=== PATIENT | female | born 1995 | race Caucasian/White ===

== ENCOUNTER 2016-10-20 15:50 | Emergency (ER) | payer OTHER ==
[2016-10-20 16:31] VITALS: BP 105/72; PULSE 86
--- NOTE | 2016-10-20 16:51 | PD ---
HPI Chief Complaint labor check Date Seen: Oct 20, 2016 Time Seen: 16:40 Travel History International Travel<30 Days: No Contact w/Intl Traveler<30Days: No Known Affected Area: No History of Present Illness HPI 21-year-old at 40 and 2/7 weeks today based on second trimester ultrasound performed at [facility] in on July 01, 2016 presents to the ED for labor check. She has unknown LMP. Not received any care. Contraction, gush of fluid, vaginal bleeding, but does feel baby move actively. She confirms a history of anemia and UTI remotely, but denies any surgeries, allergies. She only takes vitamins but over the past 2 months. She smokes 1 pack per day of cigarettes. She denies alcohol and illicit drug use. Family history significant for cervical cancer in her mother. She denies VELAZCO/N/V/D/fever/sick contacts/SOB/calf pain/dizziness/seeing spots. Para: 0 : 1 History Past Medical History Medical History: Denies Significant Hx Obstetric History Obstetric History , possible unconfirmed spontaneous at some point in the past Past Surgical History Surgical History: No Previous Surgery Family History Family History: Negative Social History Alcohol Use: No Tobacco Use: Yes (1 pack per day) Substance Abuse: No Allergies-Medications (Allergen,Severity, Reaction): Coded Allergies: No Known Allergies (Unverified , 10/20/16) Narrative Medication PNV Review of Systems Except as stated in HPI: all other systems reviewed are Neg Physical Exam Narrative GENERAL: Well-nourished, well-developed female in no acute distress. SKIN: Warm and dry. No rashes. HEAD: Normocephalic and atraumatic. EYES: No scleral icterus. No injection or drainage. ENT: No nasal drainage noted. Mucous membranes pink. Airway patent. NECK: Supple, trachea midline. No JVD. CARDIOVASCULAR: Regular rate and rhythm without murmurs, gallops, or rubs. RESPIRATORY: Breath sounds equal bilaterally. No accessory muscle use.. ABDOMEN/GI: Abdomen soft, non-tender, bowel sounds present, no rebound, no guarding GENITOURINARY: External Genitalia: intact and normal in appearance Cervix: closed, thick, high Membranes: Intact Uterine Contractions: Possibly 1 sporadic FHT's: Category: 1 Baseline: 120 Reactive: Yes to 150 Variability: Moderate Decels: Absent EXTREMITIES: No cyanosis or edema. BACK: Nontender without obvious deformity. No CVA tenderness. NEUROLOGICAL: Awake and alert. Motor and sensory grossly within normal limits. Five out of 5 muscle strength in all muscle groups. Normal speech. Data Data Vital Signs Reviewed: Yes (BP 105/72, 86 pulse) Orders Vital Signs (Adult) .ON ADMISSION (10/20/16 16:05) ^ Labor Status (10/20/16 16:05) ^ Non Stress Test (10/20/16 16:05) ^ Hydration (10/20/16 16:05) MDM Medical Record Reviewed: Yes Narrative Course / MDM 21-year-old at possibly 40 weeks by second trimester ultrasound performed at a crisis center presents for labor check. No care. Intrauterine : Category 1 tracing Sporadic contractions No care GBS unknown Cervix: closed, thick, high SDW Dr. Campbell Plan D/C home, will likely return to OB ED for labor Diagnosis Diagnosis: Primary Impression: No care in current in third trimester Additional Impression: 40 weeks gestation of Disposition: 01 DISCHARGE HOME Condition: Stable Patient Instructions: Having Your Baby: The Labor Process (GEN), General Instructions Jazzy Garrett MD R1 Oct 20, 2016 16:51 Instructions Jazzy Garrett MD R1 Oct 20, 2016 16:51
--- NOTE | 2016-10-20 17:44 | PD ---
History of Present Illness Date Seen: Oct 20, 2016 Time Seen: 16:00 History of Present Illness Patient is 21-year-old white female at 40 weeks no care presents for basically a labor check she has no complaints or problems she's was be examined and heart rate tracing is reactive with the wonderfully reactive NST she has no regular contractions no bleeding or leakage of fluid baby is active on exam patient cervix is closed and long baby is in a vertex presentation. She was monitored for an hour approximately and after that was ready for discharge home she is encouraged to begin her care if possible before she delivers Jimi Campbell II, MD Oct 20, 2016 17:44
[2016-11-09] MEDS ORDERED: PREN1CAP PO (16:21)
== END 2016-10-20 17:35 | disposition home or self-care (01) ==
LOC: HOBED 15:50
DX: O26.893 Other specified pregnancy related conditions, third trimester (principal); O09.33 Supervision of pregnancy with insufficient antenatal care, third trimester; F17.210 Nicotine dependence, cigarettes, uncomplicated; Z3A.40 40 weeks gestation of pregnancy
CPT/HCPCS: 59025

== ENCOUNTER 2016-10-22 13:34 | Inpatient (IN) | payer OTHER ==
[2016-10-22] VITALS (28 sets, daily range): BP systolic 98–127; BP diastolic 43–74; PULSE 72–91; RESP 18–20; TEMP 98.1–98.4
[2016-10-22 14:29] LABS: BACTERIA, URINE RARE /hpf; BLOOD, URINE NEG (NEG); GLUCOSE,URINE NEG (NEG); KETONE, URINE NEG (NEG); NITRITE,URINE NEG (NEG); PH, URINE 7.5 (5.0-8.5); SQUAMOUS EPITHELIAL CELL URINE 1 /hpf (0-5); URINE COLOR YELLOW (YELLW/STRAW)
[2016-10-22 14:32] LABS: COMMENT (UR) CULT NOT INDICATED; CULTURE IF INDICATED CULT NOT INDICATED
[2016-10-22 14:36] LABS: AMPHETAMINE, URINE NEG (NEG); BARBITURATES, URINE NEG (NEG); COCAINE, URINE NEG (NEG)
--- NOTE | 2016-10-22 14:57 | HHI.HP ---
HPI Chief Complaint Water broke Date Seen: Oct 22, 2016 Travel History International Travel<30 Days: No Contact w/Intl Traveler<30Days: No Known Affected Area: No History of Present Illness HPI This patient is 21-year-old white female with spontaneous rupture membranes at 40 weeks, she has no care she's been up here on OB ED several times bleeding noted heart rate is reactive and she is gatito every 2-3 minutes but she's not feeling those Para: 0 : 1 History Past Medical History Medical History: Denies Significant Hx Allergies-Medications (Allergen,Severity, Reaction): Coded Allergies: No Known Allergies (Unverified , 10/20/16) Review of Systems General / Constitutional: No: Fever, Weight Gain, Chills, Other Eyes: No: Diploplia, Blurred Vision, Visual changes, Pain, Photophobia HENT: No: Headaches, Vertigo, Lightheadedness Cardiovascular: No: Irregular Rhythm, Chest Pain or Discomfort, Palpitations, Tachycardia, Syncope, Varicosities, Edema, Cyanosis Respiratory: No: Cough, Short of Breath, Other Gastrointestinal: No: Nausea, Vomiting, Diarrhea Genitourinary: No: Decreased Urinary Output, Oliguria Musculoskeletal: No: Limited ROM, Weakness, Cramping, Edema, Pain Skin: No Rash, No Itching, No Dryness, No Lumps, No Change in Pigmentation, No Change in Nails, No Alopecia, No Lesions Neurologic: No: Weakness, Dizziness, Syncope, Focal Abnormalities, Coordination Problem, Headache, Slurred Speech, Seizures Psychiatric: No: Depression, Suicidal Ideations, Homicidal Ideation Endocrine: No: Heat Intolerance, Cold Intolerance, Polydipsia, Polyuria, Other Physical Exam Narrative GENERAL: Well-nourished, well-developed patient. SKIN: Warm and dry. HEAD: Normocephalic and atraumatic. EYES: No scleral icterus. No injection or drainage. ENT: No nasal drainage noted. Mucous membranes pink. Airway patent. NECK: Supple, trachea midline. No JVD. CARDIOVASCULAR: Regular rate and rhythm without murmurs, gallops, or rubs. RESPIRATORY: Breath sounds equal bilaterally. No accessory muscle use. BREASTS: Bilateral exam showed no masses , no retractions, no nipple discharge. ABDOMEN/GI: Abdomen soft, non-tender, bowel sounds present, no rebound, no guarding Gravid to [-40] weeks size Fundal Height: [40-] GENITOURINARY: External Genitalia: intact and normal in appearance BUS glands: [-] Cervix: [-] Dilatation: [-1] Effacement: [-60] Station: [-3] Presentation: [vtx-] Membranes: ruptured] Uterine Contractions: [reg-] FHT's: Category: [1-] Baseline: [-144] Reactive: [yes-] Variability: [-mod] Decels: [none-] EXTREMITIES: No cyanosis or edema. BACK: Nontender without obvious deformity. No CVA tenderness. NEUROLOGICAL: Awake and alert. Motor and sensory grossly within normal limits. Five out of 5 muscle strength in all muscle groups. Normal speech. Data Data Orders Urinalysis - C+S If Indicated (10/22/16 14:12) Group B Strep Pcr (Rapid) (10/22/16 14:12) Ob/Psych Drug Screen, Urine (10/22/16 14:12) Ur Bath Salts (10/22/16 13:50) Ur Heroin (10/22/16 13:50) Ur K2 Spice (10/22/16 13:50) Ur Ecstasy (10/22/16 13:50) Ur Methadone (10/22/16 13:50) Phencyclidine Urine (Pcp) (10/22/16 13:50) Ob (2e) Additional Admit Info (10/22/16 14:40) Labs amnisure positive Laboratory Tests Test 10/22/16 13:50 Urine Color YELLOW Urine Turbidity CLOUDY Urine pH 7.5 Urine Specific [place] 1.014 Urine Protein TRACE Urine Glucose (UA) NEG Urine Ketones NEG Urine Occult Blood NEG Urine Nitrite NEG Urine Bilirubin NEG Urine Urobilinogen LESS THAN 2.0 Urine Leukocyte Esterase NEG Urine RBC 2 Urine Squamous Epithelial 1 Cells Urine Amorphous Sediment MOD Urine Bacteria RARE Microscopic Urinalysis Comment CULT NOT INDICATED Urine Opiates Screen NEG Urine Barbiturates Screen NEG Urine Amphetamines Screen NEG Urine Benzodiazepines Screen NEG Urine Cocaine Screen NEG Urine Cannabinoids Screen POS Assessment/Plan Assessment and Plan Patient is a 21-year-old white female at 40 weeks however she has no regular care other than several visits here in OB ED, who presents with spontaneous rupture membranes and she does have gross ruptured membranes here on the floor. M Essure is positive, heart rate tracing is reactive she is gatito somewhat but not feeling them cervix is 1 cm 60%. Plan to admit the patient for sponge ruptured membranes and early labor will augment her labor when necessary to effect vaginal delivery Jimi Campbell II, MD Oct 22, 2016 14:57
[2016-10-22] MEDS ORDERED: LACTATED RINGER'S 1000 ML INJ 1,000 ML IV PRN (15:01)
[2016-10-22] MEDS ORDERED: CALNTAB ×2 (15:11)
[2016-10-22] MEDS ORDERED: CITRIC ACID-SODIUM CITRATE LIQ 30 ML UDC PO SCH (15:15)
[2016-10-22] MEDS ORDERED: OXYTOCIN 30 UNITS-500ML PREMIX 500 ML IV ONE (15:15)
[2016-10-22] MEDS ORDERED: MINERAL OIL 10 ML VIAL TOPICAL PRN (15:15)
[2016-10-22] MEDS ORDERED: LIDOCAINE HCL 1% 50 ML VIAL INFIL PRN (15:15)
[2016-10-22] MEDS ORDERED: SODIUM CHLORID 0.9% 500 ML INJ 500 ML IV PRN (15:15)
[2016-10-22] MEDS ORDERED: LIDOCAINE HCL 1% 50 ML VIAL I-DERMAL PRN (15:15)
[2016-10-22] MEDS ORDERED: SODIUM CHLOR 0.9% 1000 ML INJ 1,000 ML IV PRN (15:21)
[2016-10-22 15:41] LABS: BASOPHIL % 0.3 % (0.0-2.0); EOSINOPHIL # 0.2 TH/MM3 (0-0.4); EOSINOPHIL % 1.8 % (0.0-4.0); HEMO FLAGS DIFF FINAL; LYMPH % 15.9 % (9.0-44.0); LYMPHOCYTE # 1.5 TH/MM3 (1.0-4.8); MEAN CELL VOLUME 89.1 FL (80.0-100.0); MEAN CORPUSCULAR HEMOGLOBIN 30.5 PG (27.0-34.0); MEAN CORPUSCULAR HGB CONC 34.2 % (32.0-36.0); MONO % 7.9 % (0.0-8.0); NEUT % 74.1 % (16.0-70.0); PLATELET COUNT 262 TH/MM3 (150-450); RED BLOOD COUNT 3.93 MIL/MM3 (4.00-5.30); RED CELL DISTRIBUTION WIDTH 16.2 % (11.6-17.2); WHITE BLOOD COUNT 9.5 TH/MM3 (4.0-11.0)
[2016-10-22] MEDS ORDERED: OXYTOCIN 30 UNITS-500ML PREMIX 500 ML IV SCH (16:00)
[2016-10-22] MEDS: LACTATED RINGER'S 1000 ML INJ 1,000 ML IV SCH (16:10)
[2016-10-22 18:10] LABS: RUBELLA STATUS IMMUNE (IMMUNE)
[2016-10-22] MEDS ORDERED: NICOTINE 7 MG/24 HR PATCH TD ONE (19:45)
[2016-10-22] MEDS ORDERED: REMOVE OLD PATCH TD PRN (19:45)
[2016-10-22] MEDS ORDERED: fentaNYL 2MCG-BUPIV 0.125% INJ 100 ML ONE (23:01)
[2016-10-23] VITALS (66 sets, daily range): BP systolic 94–134; BP diastolic 36–91; PULSE 70–115; RESP 16–18; TEMP 97.8–99; O2SAT 95–99
[2016-10-23] MEDS ORDERED: DO NOT ADMINISTER ANTICOAGULANTS XX PRN (00:15)
[2016-10-23] MEDS ORDERED: NO SYSTEM NARCOTICS XX PRN (00:15)
[2016-10-23] MEDS ORDERED: fentaNYL 2MCG-BUPIV 0.125% 100 ML EPIDURAL SCH (00:15)
[2016-10-23] MEDS ORDERED: ePHEDrine/NS 25 MG/5 ML SYR IV PRN (00:15)
[2016-10-23] MEDS ORDERED: TERBUTALINE INJ 1 MG/ML AMP ONE (01:43)
[2016-10-23] MEDS ORDERED: TERBUTALINE INJ 1 MG/ML AMP SQ ONE (01:45)
[2016-10-23] MEDS: LACTATED RINGER'S 1000 ML INJ 1,000 ML IV SCH (06:09)
--- NOTE | 2016-10-23 06:20 | PD.LABORPN ---
Subjective Subjective This primiparous patient is transitional labor at this point, she is 4 cm 80% - 2 and on admission the patient was 1 cm thick cervix with SROM she is now on 10 of Pitocin, and the over the last 5-6 hours she's sporadically had a small run of late decelerations that resolved with increase IV fluids and ephedrine. She was also hypotensive during those episodes as result of her epidural, her beat- to-beat variability was always been good and is having heart rate accelerations as well. IUPC was just placed to better know the need for Pitocin increase area and during this exam we noted heart rate accelerations with scalp stimulation. At this point will anticipate further cervical change and entrance in the second stage of labor Objective Vital Signs Vital Signs Date Time Temp Pulse Resp B/P Pulse Ox O2 Delivery O2 Flow Rate FiO2 10/23/16 06:11 18 10/23/16 05:48 98.7 10/23/16 05:45 18 10/23/16 05:30 115 101/53 10/23/16 05:02 16 10/23/16 05:00 109 109/39 10/23/16 04:37 18 10/23/16 04:30 115 97/36 10/23/16 04:19 103 111/50 10/23/16 04:14 98.2 18 10/23/16 04:00 82 97/51 10/23/16 03:45 102 122/68 10/23/16 03:44 18 10/23/16 03:30 100 111/63 10/23/16 03:15 107 122/62 10/23/16 03:14 18 10/23/16 03:00 94 119/65 10/23/16 01:45 95 18 10/23/16 01:45 123/71 10/23/16 01:42 98 10/23/16 01:42 119/59 10/23/16 01:30 103/50 10/23/16 01:15 85 97/42 10/23/16 01:10 18 10/23/16 01:00 86 10/23/16 01:00 94/42 10/23/16 00:45 95/37 10/23/16 00:45 87 10/23/16 00:30 104/45 10/23/16 00:30 79 10/23/16 00:28 97.9 10/23/16 00:24 18 10/23/16 00:15 102/43 10/23/16 00:15 76 18 10/23/16 00:00 78 10/23/16 00:00 18 10/23/16 00:00 18 10/23/16 00:00 113/52 10/22/16 23:46 98/43 10/22/16 23:46 77 10/22/16 23:45 18 10/22/16 23:40 83 10/22/16 23:36 119/63 10/22/16 23:33 118/62 10/22/16 23:30 76 10/22/16 23:30 118/61 10/22/16 23:27 78 122/71 10/22/16 23:26 18 10/22/16 23:24 72 127/67 10/22/16 23:21 88 117/74 10/22/16 23:11 20 10/22/16 23:10 91 10/22/16 23:06 113/71 10/22/16 22:26 98.4 Objective Pelvic Exam: Cervix: [-] Dilatation: [4-] Effacement: [-80] Station: [-2] Presentation: [vtx-] Membranes: [ ruptured] Uterine Contractions: [-reg] FHT's: Category: [1-] Baseline: [154-] Reactive: [-yes] Variability: [mod-] Decels: [Patient has a sporadic an isolated late deceleration at times and earlier in the evening had short runs of late decelerations that resolved with IV fluids and ephedrine-] Assessment/Plan Assessment and Plan Plan to continue labor augmentation and if fever develops we'll start IV antibiotics Jimi Campbell II, MD Oct 23, 2016 06:20
[2016-10-23] MEDS ORDERED: diphenhydrAMINE HCL 50 MG/ML VIAL IM ONE (10:00)
--- NOTE | 2016-10-23 10:04 | PD.LABORPN ---
Subjective Subjective Pt resting comfortably. Pain well controlled with epidural. Family present at bedside. No acute concerns. Objective Vital Signs Vital Signs Date Time Temp Pulse Resp B/P Pulse Ox O2 Delivery O2 Flow Rate FiO2 10/23/16 09:57 98.0 10/23/16 09:41 103 104/63 10/23/16 09:30 106 115/59 10/23/16 09:13 114 110/56 10/23/16 09:12 18 10/23/16 09:00 91 101/45 10/23/16 08:45 98.1 10/23/16 08:45 77 98/43 10/23/16 08:30 98 114/63 10/23/16 08:00 106 111/56 10/23/16 07:42 98.5 18 10/23/16 07:42 105 121/63 10/23/16 07:30 108 121/48 10/23/16 07:00 106 118/56 10/23/16 06:56 18 10/23/16 06:34 18 10/23/16 06:30 98 119/58 10/23/16 06:11 18 10/23/16 06:07 18 10/23/16 06:00 103 107/54 10/23/16 05:48 98.7 10/23/16 05:45 18 10/23/16 05:30 115 101/53 10/23/16 05:02 16 10/23/16 05:00 109 109/39 10/23/16 04:37 18 10/23/16 04:30 115 97/36 10/23/16 04:19 103 111/50 10/23/16 04:14 98.2 18 10/23/16 04:00 82 97/51 10/23/16 03:45 102 122/68 10/23/16 03:44 18 10/23/16 03:30 100 111/63 10/23/16 03:15 107 122/62 10/23/16 03:14 18 10/23/16 03:00 94 119/65 Objective Pelvic Exam: Cervix: Midposition Dilatation: 4cm Effacement: 90% Station: -1 Presentation: Vertex Membranes: ruptured Uterine Contractions: Q2-3 minutes FHT's: Category: 1 Baseline: 135 Reactive: + Variability: moderate Decels: Absent Assessment/Plan Assessment and Plan Patient is a 21-year-old at 40/5 weeks gestation presenting after ROM, currently in active labor, augmented with pitocin. 1) IUP Category 1 tracing, reassuring Maternal vital signs stable Pitocin currently at 8 milliunits/minute 2) Prolonged rupture of membranes Mother has been afebrile GBS negative Will consider initiation of prophylactic antibiotics due to prolonged rupture dw Sheyla Albright MD R2 Oct 23, 2016 10:04
[2016-10-23] MEDS ORDERED: AMPICILLIN INJ 2,000 MG in SODIUM CHLORIDE 0.9% INJ 100 ML IV ONE (11:00)
[2016-10-23] MEDS ORDERED: BUPIVACAINE HCL PF 0.25% 10 ML VIAL ONE (11:06)
[2016-10-23] MEDS ORDERED: ceFAZolin INJ 1,000 MG VIAL ONE (11:27)
--- NOTE | 2016-10-23 11:31 | PD.LABORPN ---
Subjective Subjective Patient without complaints after epidural redose. Reports good movement. Objective Vital Signs Vital Signs Date Time Temp Pulse Resp B/P Pulse Ox O2 Delivery O2 Flow Rate FiO2 10/23/16 11:00 88 110/55 10/23/16 10:55 98.3 10/23/16 10:54 88 106/55 10/23/16 10:38 95 107/54 10/23/16 10:35 18 10/23/16 10:30 93 120/70 10/23/16 10:23 115/61 10/23/16 10:23 101 10/23/16 10:00 112 108/57 10/23/16 09:57 98.0 10/23/16 09:41 103 104/63 10/23/16 09:30 106 115/59 10/23/16 09:13 114 110/56 10/23/16 09:12 18 10/23/16 09:00 91 101/45 10/23/16 08:45 98.1 10/23/16 08:45 77 98/43 10/23/16 08:30 98 114/63 10/23/16 08:00 106 111/56 10/23/16 07:42 98.5 18 10/23/16 07:42 105 121/63 10/23/16 07:30 108 121/48 10/23/16 07:00 106 118/56 10/23/16 06:56 18 10/23/16 06:34 18 10/23/16 06:30 98 119/58 10/23/16 06:11 18 10/23/16 06:07 18 10/23/16 06:00 103 107/54 10/23/16 05:48 98.7 10/23/16 05:45 18 10/23/16 05:30 115 101/53 10/23/16 05:02 16 10/23/16 05:00 109 109/39 10/23/16 04:37 18 10/23/16 04:30 115 97/36 10/23/16 04:19 103 111/50 10/23/16 04:14 98.2 18 10/23/16 04:00 82 97/51 10/23/16 03:45 102 122/68 10/23/16 03:44 18 10/23/16 03:30 100 111/63 Objective Pelvic Exam: Cervix: [-] Dilatation: [4] Effacement: [80] Station: [2] Presentation: [-] Membranes: [intact or ruptured] Uterine Contractions: [-] FHT's: Category: [1] Baseline: [140s] Reactive: [-] Variability: [moderate] Decels: [rare variable] Assessment/Plan Assessment and Plan 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 SROM 23 hours ago, GBS prophylaxis given. D/w patient need to deliver via section secondary to arrest of dilatation. R/B/A reviewed with patient. All questions answered. Anesthesia and Peds notified. Gaby Coburn MD Oct 23, 2016 11:30
[2016-10-23] MEDS ORDERED: LACTATED RINGER'S 1000 ML INJ 1,000 ML IV ONE (11:34)
[2016-10-23] MEDS ORDERED: LACTATED RINGER'S 1000 ML INJ 1,000 ML IV SCH (12:04)
[2016-10-23] MEDS ORDERED: ceFAZolin 2 GM PREMIX 50 ML IV SCH (12:45)
[2016-10-23] MEDS ORDERED: fentaNYL CITRATE 250 MCG/5 ML AMP ONE (12:59)
[2016-10-23] MEDS ORDERED: ONDANSETRON HCL 4 MG/2 ML VIAL ONE (12:59)
[2016-10-23] MEDS ORDERED: MORPHINE SULFATE PF 5 MG/10 ML VIAL ONE (12:59)
[2016-10-23] MEDS ORDERED: OXYTOCIN 10 UNIT/ML AMP ONE (13:00)
--- NOTE | 2016-10-23 13:06 | PD.OB.DELI ---
Procedure Note Section Procedure Pre Op Diagnosis: (1) 40 weeks gestation of (2) No care in current in third trimester Pre Op Diagnosis Active labor, arrest of dilatation. Post Op Diagnosis: Post Op Diagnosis Same Performed by Gaby Coburn Procedure: Primary Low Transverse Sec Indication for delivery: Other (Arrest of dilatation) Informed consent obtained: For procedure Confirmed correct: Time-out taken Anesthesia: Epidural Medication prior to procedure: Antibiotics, IV Urinary catheter: Other (Clear at end of procedure) Sterile preparation: With 2% chlorexidine (Hibiclens) Position: Supine Operative Features Skin Incision: Pfannenstiel Uterine Incision: Low transverse w/knife / blunt ext Membranes Ruptured: Previously Presentation: Vertex Time of : 12:15 Delivery of infant: Uneventful : Male, Single One Minute : 4 Five Minute : 9 Weight: 3370 Status of : Viable Placenta delivered: Sent to pathology Medications: Oxytocin Estimated blood loss: 600cc Procedure tolerated: Well Maternal Condition: Stable Condition: Stable Procedure in detail Dictated Gaby Coburn MD Oct 23, 2016 13:06
[2016-10-23] MEDS ORDERED: CITRIC ACID-SODIUM CITRATE LIQ 30 ML UDC PO SCH (13:15)
[2016-10-23] MEDS ORDERED: EPIDURAL-DIPHENHYDRAMINE HCL 50 MG CAP PO PRN (15:15)
[2016-10-23] MEDS ORDERED: EPIDURAL-NALOXONE HCL 0.4 MG/ML AMP IV PRN (15:15)
[2016-10-23] MEDS ORDERED: EPIDURAL-NO SYSTEMIC NARCOTICS XX PRN (15:15)
[2016-10-23] MEDS ORDERED: EPIDURAL-DIPHENHYDRAMINE HCL 50 MG/ML VIAL IV PUSH PRN (15:15)
[2016-10-23] MEDS ORDERED: EPIDURAL-DO NOT ADMINISTER ANTICOAGULANTS XX PRN (15:15)
[2016-10-23] MEDS ORDERED: SIMETHICONE 80 MG CHEWABLE TAB PO PRN (17:00)
[2016-10-23] MEDS ORDERED: oxyCODONE/ACETAMINOPHEN 5 MG/325 MG TAB PO PRN (17:00)
[2016-10-23] MEDS ORDERED: ONDANSETRON HCL 4 MG/2 ML VIAL IV PUSH PRN (17:00)
[2016-10-23] MEDS ORDERED: DOCUSATE SODIUM 50 MG/SENNA 8.6 MG TAB PO PRN (17:00)
[2016-10-23] MEDS: IBUPROFEN 600 MG TAB PO PRN ×2 (17:03→23:10)
[2016-10-23] MEDS ORDERED: REMOVE OLD PATCH TD ONE (20:00)
[2016-10-23] MEDS: oxyCODONE/ACETAMINOPHEN 5 MG/325 MG TAB PO PRN (20:06)
[2016-10-23] MEDS: NICOTINE 7 MG/24 HR PATCH TD PRN (20:07)
[2016-10-24] VITALS: BP 105/59; PULSE 80; RESP 18; TEMP 98.5
[2016-10-24] MEDS: oxyCODONE/ACETAMINOPHEN 5 MG/325 MG TAB PO PRN ×3 (03:54→17:34)
[2016-10-24 03:58] VITALS: BP 107/66; PULSE 67; RESP 18; TEMP 98.2
[2016-10-24 04:15] LABS: BASOPHIL % 0.3 % (0.0-2.0); EOSINOPHIL # 0.1 TH/MM3 (0-0.4); EOSINOPHIL % 0.4 % (0.0-4.0); HEMATOCRIT 27.3 % (35.0-46.0); HEMO FLAGS DIFF FINAL; LYMPH % 12.7 % (9.0-44.0); LYMPHOCYTE # 1.8 TH/MM3 (1.0-4.8); MEAN CELL VOLUME 90.5 FL (80.0-100.0); MEAN CORPUSCULAR HEMOGLOBIN 30.4 PG (27.0-34.0); MEAN CORPUSCULAR HGB CONC 33.6 % (32.0-36.0); MONO % 9.2 % (0.0-8.0); NEUT % 77.4 % (16.0-70.0); PLATELET COUNT 190 TH/MM3 (150-450); RED BLOOD COUNT 3.02 MIL/MM3 (4.00-5.30); RED CELL DISTRIBUTION WIDTH 16.2 % (11.6-17.2); WHITE BLOOD COUNT 14.2 TH/MM3 (4.0-11.0)
[2016-10-24 08:00] VITALS: BP 86/47; PULSE 70; RESP 16; TEMP 98.5
--- NOTE | 2016-10-24 08:23 | HHI.OB ---
Subjective Post Operative Day: 1 Remarks Patient seen and examined this morning. No acute events overnight. AFVSS. Patient does report moderate amount of vaginal bleeding. Denies dizziness, lightheadedness, excessive fatigue. Ambulating without issues. Endorses flatus. No BMs. No issues urinating. She plans to breast and formula feed. Denies breast tenderness. (Aaron Mustafa MD R1) Objective Vitals/I&O Vital Signs Date Time Temp Pulse Resp B/P Pulse Ox O2 Delivery O2 Flow Rate FiO2 10/24/16 03:58 98.2 67 18 107/66 10/24/16 00:00 80 18 105/59 10/24/16 00:00 98.5 10/23/16 19:20 97.8 84 18 121/68 10/23/16 18:19 16 10/23/16 18:13 98.0 70 16 120/76 10/23/16 17:13 16 10/23/16 17:00 18 10/23/16 16:00 18 10/23/16 15:00 99.0 77 16 131/76 10/23/16 14:02 82 18 134/73 97 10/23/16 13:55 95 10/23/16 13:55 79 18 120/72 10/23/16 13:51 98.6 10/23/16 13:39 85 18 130/75 97 10/23/16 13:24 90 18 124/74 10/23/16 13:24 97 10/23/16 13:08 98.9 95 18 124/91 99 10/23/16 11:30 79 124/62 10/23/16 11:00 88 110/55 10/23/16 10:55 98.3 10/23/16 10:54 88 106/55 10/23/16 10:38 95 107/54 10/23/16 10:35 18 10/23/16 10:30 93 120/70 10/23/16 10:23 115/61 10/23/16 10:23 101 10/23/16 10:00 112 108/57 10/23/16 09:57 98.0 10/23/16 09:41 103 104/63 10/23/16 09:30 106 115/59 10/23/16 09:13 114 110/56 3/12/17 09:12 18 10/23/16 09:00 91 101/45 10/23/16 08:45 98.1 10/23/16 08:45 77 98/43 10/23/16 08:30 98 114/63 (Aaron Mustafa MD R1) Result Diagram: 10/24/16 0405 Objective Remarks GENERAL: Well-nourished, well-developed patient. CARDIOVASCULAR: Regular rate and rhythm without murmurs, gallops, or rubs. RESPIRATORY: Breath sounds equal bilaterally. No accessory muscle use. ABDOMEN/GI: Abdomen soft, non-tender, bowel sounds present. Incision: Covered with bandage. Appears dry. Fundus: Firm, non-tender at umbilicus. GENITOURINARY: Light to moderate bleeding. EXTREMITIES: No cyanosis or edema, non-tender, without signs of DVT. Medications and IVs Current Medications Medications (Trade) Dose Ordered Sig/Rubi Route Start Time Stop Time Status Last Admin Lactated Ringer's 1,000 ml @ 125 mls/hr Q8H IV 10/22/16 15:01 10/23/16 06:09 Lactated Ringer's 1,000 ml @ 3,000 mls/hr Q20M PRN IV 10/22/16 15:01 (NS 1000 ml Inj) 1,000 ml @ 100 mls/hr Q10H PRN IV 10/22/16 15:21 (fentaNYL INJ) 50 mcg Q1H PRN IV PUSH 10/22/16 15:15 (fentaNYL INJ) 100 mcg Q1H PRN IV PUSH 10/22/16 15:15 10/22/16 21:21 Mineral Oil 10 ml 10 ml UNSCH PRN TOPICAL 10/22/16 15:15 (Pitocin 30 Units-NS 500 ml Premix) 500 ml @ 0 mls/hr TITRATE IV 10/22/16 16:00 10/22/16 18:13 (Habitrol 7 Mg Patch.24 Hr) 1 patch DAILY PRN TD 10/22/16 19:45 10/23/16 20:07 Miscellaneous Information 1 1 DAILY PRN TD 10/22/16 19:45 (fentaNYL 2MCG-BUPIV 0.125% INJ) 100 ml @ 0 mls/hr TITRATE EPIDURAL 10/23/16 00:15 10/23/16 06:11 Miscellaneous Information NO SYSTEMIC NARCOTICS TO BE GIVEN FO... UNSCH PRN XX 10/23/16 15:15 10/24/16 15:14 (Narcan Inj) 0.4 mg UNSCH PRN IV 10/23/16 15:15 10/24/16 15:14 (Benadryl Inj) 25 mg Q6H PRN IV PUSH 10/23/16 15:15 10/24/16 15:14 (Benadryl) 50 mg Q6H PRN PO 10/23/16 15:15 10/24/16 15:14 Miscellaneous Information ALL NURSING DEPARTMENTS UNSCH PRN XX 10/23/16 15:15 10/24/16 15:14 (Mylicon Chew) 80 mg QID PRN PO 10/23/16 17:00 (Motrin) 600 mg Q6H PRN PO 10/23/16 17:00 10/23/16 23:10 (Percocet 5-325 Mg) 1 tab Q4H PRN PO 10/23/16 17:00 10/24/16 03:54 (Percocet 5-325 Mg) 2 tab Q4H PRN PO 10/23/16 17:00 (Sania-Colace) 2 tab Q12H PRN PO 10/23/16 17:00 (Zofran Inj) 4 mg Q6H PRN IV PUSH 10/23/16 17:00 (Aaron Mustafa MD R1) Assessment/Plan Assessment and Plan 21 year-old now POD#1 s/p due to arrest of dilatation. 1. Postoperative Care - AFVSS - Incision appears dry, still covered with bandage - Postop H&H 9.2, from 12.0 preop - Percocet and Motrin prn pain - Encouraged OOB, as tolerated - Advised pelvic rest x 6 weeks - Breast and formula feeding - Does not desire contraception - F/u in 1 week with OB provider for incision check (Aaron Mustafa MD R1) Assessment and Plan POD #1. Patient seen and examined. Agree with plan. (Gaby Coburn MD) Aaron Mustafa MD R1 Oct 24, 2016 08:23 Gaby Coburn MD Oct 24, 2016 09:22
[2016-10-24] MEDS: IBUPROFEN 600 MG TAB PO PRN ×2 (13:46→20:28)
[2016-10-24 13:54] LABS: RAPID PLASMA REAGIN SCREEN NON-REACTIVE (NON-REACTVE)
[2016-10-24 17:00] VITALS: BP 110/62; PULSE 70; RESP 16; TEMP 98.1
[2016-10-24 20:00] VITALS: BP 109/63; PULSE 67; RESP 18; TEMP 97.2
[2016-10-25] MEDS: oxyCODONE/ACETAMINOPHEN 5 MG/325 MG TAB PO PRN ×3 (00:35→20:34)
[2016-10-25] MEDS: IBUPROFEN 600 MG TAB PO PRN ×3 (04:04→20:34)
[2016-10-25 07:40] VITALS: BP 119/68; PULSE 101; RESP 18; TEMP 98.5
--- NOTE | 2016-10-25 07:41 | HHI.OB ---
Subjective Post Operative Day: 2 Remarks Patient seen and examined this morning. No acute events overnight. AFVSS. She continues to report a mild amount of vaginal bleeding slightly decreasing from yesterday. Denies excessive fatigue, dizziness, lightheadedness. No issues ambulating. Endorses flatus. No BMs. No issues urinating. She is currently formula feeding. Denies breast tenderness. Objective Vitals/I&O Vital Signs Date Time Temp Pulse Resp B/P Pulse Ox O2 Delivery O2 Flow Rate FiO2 10/24/16 20:00 97.2 67 18 109/63 10/24/16 17:00 98.1 70 16 110/62 10/24/16 08:00 98.5 16 86/47 10/24/16 08:00 70 16 86/47 10/24/16 08:00 98.5 Result Diagram: 10/24/16 0405 Objective Remarks GENERAL: Well-nourished, well-developed patient. CARDIOVASCULAR: Regular rate and rhythm without murmurs, gallops, or rubs. RESPIRATORY: Breath sounds equal bilaterally. No accessory muscle use. ABDOMEN/GI: Abdomen soft, non-tender, bowel sounds present. Incision: Clean, dry, and intact. Steri-strips in place. Fundus: Firm, non-tender at umbilicus. GENITOURINARY: Light to moderate bleeding. EXTREMITIES: No cyanosis or edema, non-tender, without signs of DVT. Medications and IVs Current Medications Medications (Trade) Dose Ordered Sig/Rubi Route Start Time Stop Time Status Last Admin Lactated Ringer's 1,000 ml @ 125 mls/hr Q8H IV 10/22/16 15:01 10/23/16 06:09 Lactated Ringer's 1,000 ml @ 3,000 mls/hr Q20M PRN IV 10/22/16 15:01 (NS 1000 ml Inj) 1,000 ml @ 100 mls/hr Q10H PRN IV 10/22/16 15:21 (fentaNYL INJ) 50 mcg Q1H PRN IV PUSH 10/22/16 15:15 (fentaNYL INJ) 100 mcg Q1H PRN IV PUSH 10/22/16 15:15 10/22/16 21:21 Mineral Oil 10 ml 10 ml UNSCH PRN TOPICAL 10/22/16 15:15 (Pitocin 30 Units-NS 500 ml Premix) 500 ml @ 0 mls/hr TITRATE IV 10/22/16 16:00 10/22/16 18:13 (Habitrol 7 Mg Patch.24 Hr) 1 patch DAILY PRN TD 10/22/16 19:45 10/23/16 20:07 Miscellaneous Information 1 1 DAILY PRN TD 10/22/16 19:45 (fentaNYL 2MCG-BUPIV 0.125% INJ) 100 ml @ 0 mls/hr TITRATE EPIDURAL 10/23/16 00:15 10/23/16 06:11 (Mylicon Chew) 80 mg QID PRN PO 10/23/16 17:00 (Motrin) 600 mg Q6H PRN PO 10/23/16 17:00 10/25/16 04:04 (Percocet 5-325 Mg) 1 tab Q4H PRN PO 10/23/16 17:00 10/25/16 00:35 (Percocet 5-325 Mg) 2 tab Q4H PRN PO 10/23/16 17:00 (Sania-Colace) 2 tab Q12H PRN PO 10/23/16 17:00 (Zofran Inj) 4 mg Q6H PRN IV PUSH 10/23/16 17:00 Assessment/Plan Assessment and Plan 21 year-old now POD#2 s/p due to arrest of dilatation. 1. Postoperative Care - AFVSS - Incision is clean, dry, and intact. Steri-strips in place. - Postop H&H 9.2, from 12.0 preop - Percocet and Motrin prn pain - Encouraged OOB, as tolerated - Advised pelvic rest x 6 weeks - Formula feeding - Does not desire contraception - Does not have an OB provider. Counseled her to seek one out and follow up in 1 week for an incision check and routine care dw Dr. Campbell and Aaron Brown MD R1 Oct 25, 2016 07:41
[2016-10-25 08:00] VITALS: BP 107/57; PULSE 60; RESP 16; TEMP 98.5
[2016-10-25 19:00] VITALS: BP 121/80; PULSE 65; RESP 18; TEMP 98.5
[2016-10-25] MEDS: NICOTINE 7 MG/24 HR PATCH TD PRN (20:53)
[2016-10-26] MEDS: oxyCODONE/ACETAMINOPHEN 5 MG/325 MG TAB PO PRN ×3 (01:50→18:18)
[2016-10-26] MEDS: IBUPROFEN 600 MG TAB PO PRN ×2 (06:30→18:19)
[2016-10-26] MEDS ORDERED: SENN1TAB PO (07:22)
[2016-10-26] MEDS ORDERED: IBUP-232 PO (07:22)
[2016-10-26] MEDS ORDERED: OXYC1TAB63 PO (07:22)
[2016-10-26 08:00] VITALS: BP 125/73; PULSE 66; RESP 18; TEMP 98.7
--- NOTE | 2016-10-26 08:52 | HHI.OB ---
Subjective Post Operative Day: 3 Remarks Patient seen and examined this morning. No acute events overnight. AFVSS. She reports minimal vaginal bleeding. Denies excessive fatigue, dizziness, or lightheadedness. No issues ambulating. Endorses flatus. No BMs yet. No issues urinating. She is currently formula feeding. Denies breast tenderness. Objective Vitals/I&O Vital Signs Date Time Temp Pulse Resp B/P Pulse Ox O2 Delivery O2 Flow Rate FiO2 10/25/16 19:00 98.5 65 18 121/80 10/25/16 16:06 18 10/25/16 16:06 18 Result Diagram: 10/24/16 0405 Objective Remarks GENERAL: Well-nourished, well-developed patient. CARDIOVASCULAR: Regular rate and rhythm without murmurs, gallops, or rubs. RESPIRATORY: Breath sounds equal bilaterally. No accessory muscle use. ABDOMEN/GI: Abdomen soft, non-tender, bowel sounds present. Incision: Clean, dry, and intact. Steri-strips in place. Fundus: Firm, non-tender at umbilicus. GENITOURINARY: Light to moderate bleeding. EXTREMITIES: No cyanosis or edema, non-tender, without signs of DVT. Medications and IVs Current Medications Medications (Trade) Dose Ordered Sig/Rubi Route Start Time Stop Time Status Last Admin Lactated Ringer's 1,000 ml @ 125 mls/hr Q8H IV 10/22/16 15:01 10/23/16 06:09 Lactated Ringer's 1,000 ml @ 3,000 mls/hr Q20M PRN IV 10/22/16 15:01 (NS 1000 ml Inj) 1,000 ml @ 100 mls/hr Q10H PRN IV 10/22/16 15:21 (fentaNYL INJ) 50 mcg Q1H PRN IV PUSH 10/22/16 15:15 (fentaNYL INJ) 100 mcg Q1H PRN IV PUSH 10/22/16 15:15 10/22/16 21:21 Mineral Oil 10 ml 10 ml UNSCH PRN TOPICAL 10/22/16 15:15 (Pitocin 30 Units-NS 500 ml Premix) 500 ml @ 0 mls/hr TITRATE IV 10/22/16 16:00 10/22/16 18:13 (Habitrol 7 Mg Patch.24 Hr) 1 patch DAILY PRN TD 10/22/16 19:45 3/14/17 20:53 Miscellaneous Information 1 1 DAILY PRN TD 10/22/16 19:45 (fentaNYL 2MCG-BUPIV 0.125% INJ) 100 ml @ 0 mls/hr TITRATE EPIDURAL 10/23/16 00:15 10/23/16 06:11 (Mylicon Chew) 80 mg QID PRN PO 10/23/16 17:00 (Motrin) 600 mg Q6H PRN PO 10/23/16 17:00 10/26/16 06:30 (Percocet 5-325 Mg) 1 tab Q4H PRN PO 10/23/16 17:00 10/26/16 06:30 (Percocet 5-325 Mg) 2 tab Q4H PRN PO 10/23/16 17:00 (Sania-Colace) 2 tab Q12H PRN PO 10/23/16 17:00 (Zofran Inj) 4 mg Q6H PRN IV PUSH 10/23/16 17:00 Assessment/Plan Assessment and Plan 21 year-old now POD#3 s/p due to arrest of dilatation. 1. Postoperative Care - AFVSS - Incision is clean, dry, and intact. Steri-strips in place. - Postop H&H 9.2, from 12.0 preop - Percocet and Motrin prn pain - Encouraged OOB, as tolerated - Advised pelvic rest x 6 weeks - Formula feeding - Does not desire contraception - Does not yet have an OB provider. She stated she will schedule an appointment with her sisters OB provider - Discharge today and advised her to schedule a follow up appointment with an OB provider in 1 week for an incision check and routine care dw Aaron Daniel MD R1 Oct 26, 2016 08:52
--- NOTE | 2016-10-26 08:59 | HHI.DCPOC ---
Discharge Care Plan Diagnosis: (1) care following vaginal delivery Report Symptoms to Your Doctor -Temperate above 100.5 degrees -Redness, of incision or excessive or foul smelling drainage -Unusual pain or calf pain -Increased vaginal bleeding -Painful or difficulty urinating -Feelings of extreme sadness or anxiety after 2 weeks Goals to Promote Your Health To maintain your health at the optimal level follow up with an OB provider within one week after discharge. Directions to Meet Your Goals Take your medications as prescribed Follow your dietary instruction Follow activity as directed Ensure plenty of rest for recovery Drink fluids for hydration Keep your appointments as scheduled Take your immunizations and boosters as scheduled If your symptoms worsen call your PCP, if no PCP go to Urgent Care Center or Emergency Room Smoking is Dangerous to Your Health. Avoid second hand smoke Call the 24-hour crisis hotline for domestic abuse at Aaron Mustafa MD R1 Oct 26, 2016 08:59
--- NOTE | 2016-10-26 12:04 | MP ---
cc: SHARON COBURN MD DATE OF SURGERY: 10/23/2016 PREOPERATIVE DIAGNOSIS: A 21-year-old, 1 at 40-weeks, in active labor with arrest of dilatation, prolonged rupture of membranes and insufficient care. POSTOPERATIVE DIAGNOSIS: A 21-year-old, 1 at 40-weeks, in active labor with arrest of dilatation, prolonged rupture of membranes and insufficient care. OPERATION: Primary low transverse section via Pfannenstiel skin incision. SURGEON Dr. Sharon Coburn. 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 ANESTHESIA Epidural. ESTIMATED BLOOD LOSS 600 ccs. IV FLUIDS 2100 ccs LR. URINE OUTPUT Clear at the end of the procedure. FINDINGS Viable male infant with time of delivery at 12:15, weight of 3370 grams, Apgars: 4 at 1 minute, 9 at 5 minutes. Grossly normal bilateral fallopian tubes and ovaries. PATHOLOGY Placenta. COMPLICATIONS None. PROCEDURE The patient was taken to the operating room where she was prepped and draped in normal sterile fashion in supine position. After anesthesia was deemed to be adequate a Pfannenstiel skin incision was made approximately 2 cm above the symphysis pubis and carried down to the underlying layer of the fascia was then incised in the midline and extended laterally. The superior aspect of the fascia was grasped with a Nita clamp, elevated and the underlying muscles were dissected off by sharp and blunt dissection. In a similar fashion the inferior aspect of the fascia was grasped with Nita clamp, was elevated and again the muscles were dissected off by sharp and blunt dissection. The rectus muscles were in the midline. The peritoneum was then identified, grasped with hemostats and entered, with Metzenbaum scissors that incision was then extended superiorly and inferiorly with good visualization of the bladder. Bladder blade was then inserted and the vesicouterine peritoneum was then identified, entered with Metzenbaum scissors and a bladder flap was created digitally. Bladder blade was then inserted into the bladder flap and a transverse incision was then made on the lower uterine aspect, extended by finger fraction. The infant's head was then delivered atraumatically, mouth and nares were bulb suctioned. The anterior then posterior shoulders were delivered followed by remainder of body. Cord was clamped x2 and cut. The infant was handed off to the awaiting nursery staff. Attention was then returned to the patient where three vessel placenta was then removed manually. Cord blood was obtained. The uterus was then exteriorized, cleared of all clot and debris. The uterine incision was then repaired with 0-Vicryl in a running lock fashion with second layer imbricated using same suture. The pelvis and abdomen were then suctioned and clots and debris were removed. The bladder flap was then reapproximated using 3-0 Vicryl in a running continuous fashion. The uterus was then returned to the abdomen with hemostasis noted and the peritoneum was reapproximated using 2-0 Vicryl in a running continuous fashion. The rectus muscles were reapproximated using 2-0 Vicryl x 2. Good hemostasis was noted. The fascial incision was reapproximated with 0-PDS in a running lock fashion and the subcutaneous adipose tissue was then irrigated and made hemostatic using cautery where needed and reapproximated in two layers using 3-0 plain gut. The skin was then reapproximated using 4-0 Vicryl on a Bill needle in a subcuticular fashion. All sponge, lap, instrument and needle counts were correct x 2. 2 grams of Ancef were administered prior to start of the procedure, 20 units of pitocin was administered and 1 liter of LR at the end of the procedure. Cord gases were attempted but not able to be obtained. Sharon Coburn MD JR/RAFAEL /1:10 PM /10:53 AM MARY JO
[2016-10-26 20:00] VITALS: BP 143/85; PULSE 68; RESP 15; TEMP 98.2
[2016-10-27 14:01] LABS: BATH SALTS (MDPV) UR NEG (NEG); ECSTASY (MDMA) UR NEG (NEG); HEROIN (6-ACETYLMORPHINE) UR NEG (NEG); K2 SPICE UR NEG (NEG); OBMETHADONE UR NEG (NEG); OXYCODONE (PERCODAN) NEG (NEG); PHENCYCLIDINE URINE NEG (NEG)
[2016-11-09] MEDS ORDERED: PREN1CAP PO (16:21)
== END 2016-10-26 20:58 | disposition home or self-care (01) | DRG 766 ==
LOC: HOBED 13:34 → H2EA 14:47 → H1EA 10-23 14:21
PROVIDERS: ADMIT Obstetrics & Gynecology Maternal & Fetal Medicine; ATTEND Obstetrics & Gynecology Maternal & Fetal Medicine
PROC: 10D00Z1 Extraction of Products of Conception, Low, Open Approach (ICD-10-PCS; principal; 2016-10-23)
DX: O76 Abnormality in fetal heart rate and rhythm complicating labor and delivery (principal); O42.02 Full-term premature rupture of membranes, onset of labor within 24 hours of rupture; O62.0 Primary inadequate contractions; Z37.0 Single live birth; Z3A.40 40 weeks gestation of pregnancy
CPT/HCPCS: 59025; 80074; 80307; 81001; 84112; 85025; 86592; 86703; 86762; 86850; 86900; 86901; 87081; 87150; 99285; G0481; J0290; J0690; J1200; J2274; J2405; J2590; J3010; J3105; J7120

== ENCOUNTER 2016-10-30 17:39 | Emergency (ER) | payer OTHER ==
[~2016-10-30] VITALS: Ht 157.5 cm; Wt 63.0 kg
[~2016-10-30 17:39] MED LIST: CALNTAB; IBUP-232 PO; OXYC1TAB63 PO; SENN1TAB PO
[2016-10-30 17:44] VITALS: BP 106/66; PULSE 81; TEMP 98.1; O2SAT 98
--- NOTE | 2016-10-30 18:38 | PD ---
HPI Chief Complaint: Laceration/Skin Injury Time Seen by Provider: 18:37 Travel History International Travel<30 days: No Contact w/Intl Traveler<30days: No Traveled to known affect area: No History of Present Illness HPI 21-year-old female who is 7 days presents to the emergency Department with reports of drainage and erythema to the incision site. She denies fever, chills, or significant pain. Patient states he is eating well and urinating without difficulty. She denies any bowel issues. Patient states she is doing well with her 7 day old son. Patient states that she is needed to use a couple of The pads for the drainage over the past 2 days. Patient has no history of MRSA in the past. She has no known drug allergies. PFSH Past Medical History Anemia: Yes Medical other: Yes (hepatitis C) ?: Not : 1 Para: 1 Past Surgical History Section: Yes (seven days ago) Social History Alcohol Use: No Tobacco Use: Yes Substance Use: No Allergies-Medications (Allergen,Severity, Reaction): Coded Allergies: No Known Allergies (Unverified , 10/22/16) Reported Meds & Prescriptions Reported Meds & Active Scripts Active Senna Plus 8.6-50 mg (Sennosides-Docusate Sodium) 1 Tab Tab 2 Tab PO Q12H PRN Ibuprofen 600 Mg Tab 600 Mg PO Q6H PRN Oxycodone-Acetaminophen 5-325 mg Tab 1 Tab PO Q4H PRN Reported Calna ( Vitamin) 1 Tab Tab Review of Systems Except as stated in HPI: all other systems reviewed are Neg General / Constitutional: No: Fever Eyes: No: Visual changes HENT: No: Headaches Cardiovascular: No: Chest Pain or Discomfort Respiratory: No: Shortness of Breath Gastrointestinal: No: Abdominal Pain Genitourinary: No: Dysuria Musculoskeletal: No: Pain Skin: Positive Lesions (see history.), No Rash Neurologic: No: Weakness Psychiatric: No: Depression Endocrine: No: Polydipsia Hematologic/Lymphatic: No: Easy Bruising Physical Exam Narrative GENERAL: Patient appears no acute distress. SKIN: Warm and dry. Normal color. Normal turgor. Incision site a small dehiscence in the central area measuring approximately 0.5 cm in length with no significant erythema or induration noted. No palpable deep abscess is noted. There is a small amount of serous drainage from the area. Wound culture is obtained. HEAD: Atraumatic. Normocephalic. EYES: Pupils equal and round. No scleral icterus. No injection or drainage. ENT: No nasal bleeding or discharge. Mucous membranes pink and moist. NECK: Trachea midline. No JVD. CARDIOVASCULAR: Regular rate and rhythm. No murmurs gallops or rubs. RESPIRATORY: No accessory muscle use. Clear to auscultation. Breath sounds equal bilaterally. MUSCULOSKELETAL: Extremities without clubbing, cyanosis, or edema. No obvious deformities. NEUROLOGICAL: Awake and alert. No obvious cranial nerve deficits. Motor grossly within normal limits. Five out of 5 muscle strength in the arms and legs. Normal speech. PSYCHIATRIC: Appropriate mood and affect; insight and judgment normal. Data Data Last Documented VS Vital Signs Date Time Temp Pulse Resp B/P Pulse Ox O2 Delivery O2 Flow Rate FiO2 10/30/16 17:44 98.1 81 106/66 98 MDM Medical Decision Making Medical Screen Exam Complete: Yes Emergency Medical Condition: Yes Differential Diagnosis Status post . Wound dehiscence. Cellulitis. Abscess. Narrative Course Patient is medically stable at time of exam. Wound culture sent to the lab. Patient is discussed with Dr. Kong, who recommends conservative treatment with soap and water washes to 3 times a day and apply Bactroban as needed. Patient is to follow-up with her OB or primary care physician in the next several days. Patient can follow-up sooner if symptoms worsen. 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 Wound culture sent to the lab. Patient is discussed with Dr. Kong, who recommends conservative treatment with soap and water washes to 3 times a day and apply Bactroban as needed. Patient is to follow-up with her OB or primary care physician in the next several days. Patient can follow-up sooner if symptoms worsen. Med/Other Pt SpecificInfo: Prescription(s) given Scripts Mupirocin Topical (Bactroban Topical)2 % Cream1 Applic TOPICAL BID #1 TUBE Prov:Stephanie Ring MD 10/30/16 Disposition: 01 DISCHARGE HOME Condition: Stable Tyler Sosa Oct 30, 2016 18:38
[2016-10-30] MEDS ORDERED: MUPI2%T TOPICAL (18:59)
[2016-10-30 19:11] VITALS: BP 112/69
[2016-11-09] MEDS ORDERED: PREN1CAP PO (16:21)
== END 2016-10-30 19:52 | disposition home or self-care (01) ==
LOC: NEPC 17:39
DX: O90.0 Disruption of cesarean delivery wound (principal); B95.61 Methicillin susceptible Staphylococcus aureus infection as the cause of diseases classified elsewhere; B19.20 Unspecified viral hepatitis C without hepatic coma; Z72.0 Tobacco use
CPT/HCPCS: 86403; 87070; 87185; 87186; 87205; 99283